=== PATIENT | female | born 1950 | race Caucasian/White ===

== ENCOUNTER 2018-12-21 11:16 | Outpatient (CLI) | payer MEDICARE ==
--- NOTE | 2018-12-21 14:39 | CT ---
CT FACE WITHOUT CONTRAST: HISTORY: Mass of the left mandible. COMPARISON: None. FINDINGS: The paranasal sinuses and mastoids are clear. No acute fracture of the face. Globes are normal. Retrobulbar soft tissues are normal. Normal alignment of the temporomandibular joints. At the caudal margin of the left masseter muscle is a soft tissue mass measuring 1.3 x 1.8 x 1.8 cm. No underlying osseous destruction of the mandible. At the mandibular body there is what appears to be an implant of the mandible. There is peripheral s emilunar-shaped hyperdensity with internal hypodensity abutting the margin of the mandible measuring 3 cm in length. IMPRESSION: 1. Mass of the caudal aspect of left masseter muscle as described. ENT consultation advised. Biops y recommended. 2. Likely implant in the body of the mandible. If there is no history of prior cosmetic implants, u nderlying mass would then be suspected of the medullary cavity of the mandibular body. POS: [facility]
== END 2018-12-21 11:17 | disposition home or self-care (01) ==
LOC: NAV CT 11:16
PROVIDERS: ATTEND Nurse Practitioner Family
DX: R22.0 Localized swelling, mass and lump, head (principal)
CPT/HCPCS: 70486

== ENCOUNTER 2021-01-12 08:28 | Outpatient (CLI) | payer OTHER | END 2021-01-12 08:29 | disposition home or self-care (01) | LOC: NAV LAB 08:28 | PROVIDERS: ATTEND Pathology Anatomic Pathology & Clinical Pathology | DX: Z00.00 Encounter for general adult medical examination without abnormal findings (principal) | CPT/HCPCS: 36415 ==

== ENCOUNTER 2021-01-26 08:40 | Emergency (ER) | payer OTHER, MEDICARE | END 2021-01-26 10:07 | disposition home or self-care (01) | LOC: NAV ERS 08:40 | DX: M54.31 Sciatica, right side (principal); J45.909 Unspecified asthma, uncomplicated; Z79.51 Long term (current) use of inhaled steroids | CPT/HCPCS: 72100; 72170 ==

== ENCOUNTER 2024-07-02 09:44 | Emergency (ER) | payer MEDICARE ==
[~2024-07-02 09:44] MED LIST: Iopamidol 370 76% 100 ML VIAL ONE
[2024-07-02 10:44] LABS: #Basophils 0.1 thou/uL (0.0-0.2); #Eosinphils 0.2 thou/uL (0.0-0.7); #Lymphocytes 2.2 thou/uL (1.20-3.40); #Monocytes 0.6 thou/uL (0.11-0.59); %Basophils 1.6 % (0.0-1.0); %Eosinophils 3.1 % (0.0-10.0); %Lymphocytes 30.8 % (21.0-51.0); %Monocytes 8.8 % (0.0-10.0); %Neutrophils 55.8 % (42.0-75.0); Hematocrit 41.7 % (36.0-47.0); Hemoglobin 13.3 g/dL (12.0-16.0); Mean Corpuscular Hemoglobin 28.7 pg (27.0-31.0); Mean Corpuscular Volume 89.7 fl (78.0-98.0); Mean Platelet Volume 7.8 fL (7.4-10.4); Platelet Count 195 10x3/uL (130-400); RBC Distribution Width 11.6 % (11.5-14.5); Red Blood Cell (RBC) Count 4.64 mill/uL (4.20-5.40); White Blood Cell (WBC) Count 7.3 10x3/uL (4.8-10.8)
[2024-07-02 11:01] LABS: ALT (SGPT) 30 U/L (8-55); AST (SGOT) 25 U/L (5-34); Albumin 3.7 g/dL (3.4-4.8); Alkaline Phosphatase 83 U/L (40-110); Anion Gap 12 mmol/L (10-20); BUN (Urea Nitrogen) 13 mg/dL (9.8-20.1); Bilirubin, Total 0.6 mg/dL (0.2-1.2); Calc. Creatinine Clearance 0 mL/min (70-130); Calcium 9.3 mg/dL (7.8-10.44); Carbon Dioxide 28 mmol/L (23-31); Chloride 100 mmol/L (98-107); Estimated GFR 92; Globulin 2.7 g/dL (2.4-3.5); Glucose 156 mg/dL (83-110); Lipase 42 U/L (8-78); Potassium 3.5 mmol/L (3.5-5.1); Protein, Total 6.4 g/dL (5.8-8.1); Sodium 136 mmol/L (136-145); Troponin I Less than 0.010 ng/mL (< 0.028)
[2024-07-02 11:12] LABS: SARS-CoV-2 E Target Negative; SARS-CoV-2 N2 Target Negative; SARS-CoV-2 NAA Rapid Test Not Detected (NotDetected); SARS-CoV-2 RdRP gene Negative
[2024-07-02 11:55] LABS: Bilirubin Negative (Negative); Blood, Urine Negative (Negative); Clarity Clear (Clear); Glucose, Urine (Dipstick) Negative (Negative); Ketone, Urine Negative (Negative); Leukocyte Small (Negative); Nitrite Negative (Negative); Protein, Urine (Dipstick) Negative (Neg-Trace); Urobilinogen 0.2 mg/dL (Less than 2); pH, Urine 6.5 (5.0-9.0)
[2024-07-02 12:03] LABS: Bacteria/HPF None Seen HPF (None Seen); CAUTI Indications for Culture < 2yrs of age; RBC/HPF None Seen HPF (0-3); Squamous Epithelial None Seen HPF (0-3); WBC/HPF 0-3 HPF (0-3)
[2024-07-02 12:09] LABS: Urine Culture Reflex Yes Yes
== END 2024-07-02 13:00 | disposition home or self-care (01) ==
LOC: NAV ERS 09:44
DX: R00.1 Bradycardia, unspecified (principal); R06.02 Shortness of breath; R05.1 Acute cough
CPT/HCPCS: 71045; 71275; 80053; 83605; 83690; 83880; 84443; 84484; 85025; 85379; 87040; 93005; Q9967; U0002

== ENCOUNTER 2025-06-19 19:35 | Emergency (ER) | payer MEDICARE ==
[2025-06-19 20:21] LABS: #Basophils 0.0 thou/uL (0.0-0.2); #Eosinophils 0.0 thou/uL (0.0-0.7); #Lymphocytes 0.9 thou/uL (1.20-3.40); #Monocytes 0.2 thou/uL (0.11-0.59); #Neutrophils 4.3 thou/uL (1.40-6.50); %Basophils 0.5 % (0.0-1.0); %Eosinophils 0.1 % (0.0-10.0); %Lymphocytes 16.7 % (21.0-51.0); %Monocytes 3.5 % (0.0-10.0); %Neutrophils 79.2 % (42.0-75.0); Hematocrit 41.9 % (36.0-47.0); Hemoglobin 14.3 g/dL (12.0-16.0); Mean Corpuscular Hemoglobin 30.1 pg (27.0-31.0); Mean Corpuscular Volume 88.3 fl (78.0-98.0); Platelet Count 215 10x3/uL (130-400); Red Blood Cell (RBC) Count 4.74 mill/uL (4.20-5.40); White Blood Cell (WBC) Count 5.5 10x3/uL (4.8-10.8)
[2025-06-19 20:28] LABS: Glucose, Urine (Dipstick) 500 mg/dL (Negative); Leukocyte Negative (Negative); Protein, Urine (Dipstick) 30 mg/dL (Neg-Trace); Specific Gravity, Urine 1.020 (1.005-1.030)
[2025-06-19 20:33] LABS: Acetaminophen Less than 10 mcg/mL (Less than 10); Salicylate Less than 8.0 mg/dL (Less than 8.0)
[2025-06-19 20:34] LABS: ALT (SGPT) 38 U/L (Less than 34); AST (SGOT) 44 U/L (11-34); Albumin 3.9 g/dL (3.1-4.5); Alkaline Phosphatase 88 U/L (40-110); Anion Gap 17 mmol/L (10-20); BUN (Urea Nitrogen) 12 mg/dL (9.8-20.1); Bilirubin, Total 0.7 mg/dL (0.3-1.2); Calc. Creatinine Clearance 0 mL/min (70-130); Calcium 9.0 mg/dL (7.8-10.44); Carbon Dioxide 25 mmol/L (23-31); Chloride 98 mmol/L (98-107); Globulin 2.8 g/dL (2.4-3.5); Glucose 289 mg/dL (83-110); Potassium 3.5 mmol/L (3.5-5.1); Sodium 136 mmol/L (136-145)
[2025-06-19 20:38] LABS: Cocaine Metabolite Screen Negative (Negative); THC/Cannabinoid Screen Negative (Negative); Tricyclic Screen Negative (Negative)
[2025-06-19 20:41] LABS: CAUTI Indications for Culture Alt mental st,lethar; WBC/HPF 21-50 HPF (0-3)
[2025-06-19 20:42] LABS: Bacteria/HPF 2+ HPF (None Seen); Mucous/LPF 1+ LPF (<2+)
[2025-06-19 20:43] LABS: Urine Culture Reflex Yes Yes
== END 2025-06-20 01:00 | disposition home or self-care (01) ==
LOC: NAV ERS 19:35
DX: T43.3X1A Poisoning by phenothiazine antipsychotics and neuroleptics, accidental (unintentional), initial encounter (principal); N39.0 Urinary tract infection, site not specified
CPT/HCPCS: 80053; 80306; 80307; 81001; 85025; 87077; 87086; 93005; 96374; 99284; J0692; 36415

== ENCOUNTER 2025-08-23 08:56 | Outpatient (CLI) | payer MEDICARE | END 2025-08-23 08:57 | disposition home or self-care (01) | LOC: NAV RAD 08:56 | PROVIDERS: ATTEND Nurse Practitioner Family | DX: J06.9 Acute upper respiratory infection, unspecified (principal) | CPT/HCPCS: 71046 ==